=== PATIENT | female | born 1940 | race Caucasian/White ===

== ENCOUNTER 2020-11-23 11:07 | Outpatient (CLI) | payer MEDICARE, SELFPAY | END 2020-11-23 11:08 | disposition home or self-care (01) | LOC: ANHCOVIDVC 11:07 | PROVIDERS: PCP Internal Medicine Gastroenterology | DX: Z23 Encounter for immunization (principal) | CPT/HCPCS: 0001A; 91300 ==

== ENCOUNTER 2020-12-14 10:18 | Outpatient (CLI) | payer MEDICARE, SELFPAY | END 2020-12-14 10:19 | disposition home or self-care (01) | LOC: ANHCOVIDVC 10:19 | PROVIDERS: PCP Internal Medicine Gastroenterology | DX: Z23 Encounter for immunization (principal) | CPT/HCPCS: 0002A; 91300 ==